=== PATIENT | female | born 1980 | race Caucasian/White ===

== ENCOUNTER → 2018-02-23 08:22 | Outpatient (CLI) | payer SELFPAY ==
--- NOTE | 2018-02-23 08:26 | US_ITS ---
STUDY: FIRST TRIMESTER OBSTETRICAL ULTRASOUND REASON FOR EXAM: Female, 38 years old. dating. LMP: November 29, 2017. TECHNIQUE: Transabdominal PRIOR ULTRASOUND: None. FINDINGS: There is visualization of a single gestational sac in a normal intrauterine position. The mean sac diameter (MSD) measures 6.2 cm x 3.3 cm x 8.1 cm. The gestational sac shape is within normal limits. There is no demonstrated yolk sac. The placenta is non-visualized. There is visualization of a live embryo. The crown-rump length (CRL) measures 6.05 cm, indicating an estimated gestational age (EGA) of 12 weeks, 4 days. There is demonstrated cardiac activity with a heart rate of 150 bpm. The estimated gestation age (EGA) by LMP is 12 weeks, 4 days. The estimated date of delivery (WESLY) by LMP is September 03, 2018. The estimated gestation age (EGA) by US is 12 weeks, 2 days. The estimated date of delivery (WESLY) by US is September 05, 2018. The uterus measures 11.6 cm x 10.3 cm x 8.8 cm. There is no demonstrated uterine fibroid. The cervix is closed. The right ovary is not visualized. The left ovary is not visualized. There is no fluid in the cul de sac. US/Init OB < 14Wks US IMPRESSION: Single live intrauterine gestation with a mean gestational age of 12 weeks and 2 days. Electronically Signed: Hudson Woods MD at 10:10 EDT Tel [phone], Service support ,
== END ==
PROVIDERS: Family Provider Student in an Organized Health Care Education/Training Program; PCP Student in an Organized Health Care Education/Training Program
DX: Z36.9 Encounter for antenatal screening, unspecified (principal)
CPT/HCPCS: 76801

== ENCOUNTER → 2018-04-18 13:55 | Outpatient (CLI) | payer SELFPAY ==
--- NOTE | 2018-04-18 14:01 | US_ITS ---
STUDY: SECOND AND THIRD TRIMESTER OBSTETRICAL ULTRASOUND REASON FOR EXAM: Female, 38 years old. Anatomy scan LMP: TECHNIQUE: Transabdominal PRIOR ULTRASOUND: 7.20.18 FINDINGS: There is a single intrauterine fetus. The fetus is in a cephalic presentation. There is demonstrated cardiac activity with a heart rate of 153 bpm. There is a normal amniotic fluid volume. The placenta is anterior in location and is not low lying. There are Grade 1 placental changes. The cervix measures 3 9 mm in length. The bilateral adnexal regions are normal. BIOMETRY: BPD: 47mm: 20 weeks, 1 days HC: 174mm: 20 weeks, 0 days AC: 149mm: 20 weeks, 1 days FL: 39mm: 20 weeks, 2 days CI: 81 FL/BPD: 70 FL/HC: FL/AC: 22 HC/AC: 1.17 age by current US: 20 weeks, 1 days. WESLY by current US: 1.29.19. Estimated weight: 336 grams, +/- 49 grams, 38 %. age by prior US: 20 weeks, 2 days. WESLY by prior US: 1.28.19. Age by LMP: 20 weeks, 2 days. WESLY by LMP: 1.28.19. ANATOMY: Gender: Male Cranium: Normal lateral ventricles. Normal choroid plexus. Normal cerebellum. Normal cisterna magna. Normal face, nose and lips. Chest: Normal 4-chamber heart. Abdomen/Pelvis: Normal diaphragm. Normal stomach. Normal abdominal wall. Normal cord insertion. Normal 3 vessel cord. Normal kidneys. Normal bladder. Spine: Normal cervical spine. Normal thoracic spine. Normal lumbar spine. Normal sacrum. Extremities: Normal bilateral upper extremities. Normal bilateral lower extremities. US/OB Anatomy Scan IMPRESSION: There is a single live intrauterine with a heart rate of 153 bpm. age by current US: 20 weeks, 1 days. WESLY by current US: 1.29.19. Unremarkable anatomic survey Electronically Signed: Girish Wallis MD at 20:19 EDT , Service support ,
== END ==
PROVIDERS: Family Provider Student in an Organized Health Care Education/Training Program; PCP Student in an Organized Health Care Education/Training Program
DX: Z36.9 Encounter for antenatal screening, unspecified (principal)
CPT/HCPCS: 76805

== ENCOUNTER → 2019-05-07 17:42 | Outpatient (CLI) | payer SELFPAY ==
[2019-04-24 08:32] VITALS: BMI 28.4
--- NOTE | 2019-05-07 17:50 | CT_ITS ---
STUDY: CT ABDOMEN WITH CONTRAST REASON FOR EXAM: Female, 39 years old. Ventral hernia RADIATION DOSAGE (If Supplied By Facility): CTDIvol = ( 10.80 ) mGy, DLP = ( 304.46 ) mGycm TECHNIQUE: Transaxial images were obtained post I.V. administration of Oral and amp;amp; IV Readi-CAT and amp;amp; 100mL Isovue-300 100, and oral contrast. Sagittal and coronal images were reconstructed. Individualized dose optimization techniques were used for this CT. COMPARISON: None. FINDINGS: The visualized lung bases are unremarkable. The visualized portions of the heart are within normal limits. Subcentimeter cysts in the liver. Normal gallbladder and extrahepatic biliary system. Normal spleen. Normal pancreas. Normal bilateral adrenal glands. Normal right kidney. Normal left kidney. Normal visualized stomach. Normal visualized small intestine. Normal visualized colon. Normal abdominal aorta. Normal inferior vena cava. Normal retroperitoneum. Possible 1 cm right adnexal cystic nodule. Small fatty periumbilical hernia. Normal osseous structures. CT/Abdomen WITH IV Contrast IMPRESSION: Small fatty periumbilical hernia. Small hepatic cysts. Small right adnexal cystic nodule. Electronically Signed: Jamie Card DO at 19:51 EDT Tel [phone], Service support ,
== END ==
PROVIDERS: Family Provider Student in an Organized Health Care Education/Training Program; PCP Student in an Organized Health Care Education/Training Program; Referring Provider Surgery; Visit Provider Surgery
DX: K43.9 Ventral hernia without obstruction or gangrene (principal)
CPT/HCPCS: 74160; Q9967

== ENCOUNTER 2019-09-26 09:37 | Day surgery (SDC) | payer SELFPAY ==
[2019-04-24 08:32] VITALS: BMI 28.4
[2019-09-24 13:22] LABS: Hematocrit 34.7 % (37-47); Hemoglobin 11.2 g/dL (12.0-15.0); Mean Corp Hgb Conc 32.3 g/dL (32-36); Mean Corpuscular Hgb 29.2 pg (27.0-32.0); Mean Corpuscular Volume 90.4 fL (81-99); Mean Platelet Vol. 9.9 fl (6.2-12.0); Platelet Count 309 K/mm3 (150-450); RBC Distribution Width CV 13.7 % (11.6-14.6); RBC Distribution Width SD 45.1 fl (35.1-43.9); Red Blood Count 3.84 M/mm3 (4.2-5.4); White Blood Count 10.7 K/mm3 (4.4-11.0)
[2019-09-24 13:33] LABS: Partial Thromboplast Time 24.9 Seconds (24.1-36.2); Prothrombin Time (Protime)PT. 12.9 SECONDS (11.7-14.9)
[2019-09-26] VITALS (8 sets, daily range): BP systolic 91–107; BP diastolic 54–76; PULSE 60–72; RESP 15–18; TEMP 36.6–36.8; O2SAT 100; BMI 22.0
--- NOTE | 2019-09-26 | POC_PTH ---
PATIENT: BIANCA [place]ARRY [place] [facility] [place][id number] AGE/SX: 39/F ROOM: RE09/26/[address]: Dr. Chelita Juarez MD : 1980 BED: DIS: 09/26/2019 SPEC #: [id number] RECD: 09/26/19 16:24 STATUS: SOM JAMILA #: [id number] GÓMEZ: 09/26/19 00:[address]: Chelita Heard DEPT: SURGICAL PATHOLOGY RECD BY: Jose Cruz Sequeira ENTERED: 09/27/19 10:01 SP TYPE: PROD CONC OTHR DR: Dr. Martin Marin, DO Tissues: Product of conception, NOS Procedures: Surgery Specimen Level IV HEADER OPERATION: D & C suction PRE-OP DIAGNOSIS: Incomplete spontaneous TISSUE SUBMITTED: Products of conception MICROSCOPIC DIAGNOSIS Endometrium, curettage: Chorionic villi, decidualized stroma and trophoblastic cells consistent with products of conception. AM:bacilio 09/30/19 MICROSCOPIC DESCRIPTION Slides are reviewed. GROSS DESCRIPTION Received in fixative is one container labeled with the patient's name and designated products of conception. The specimen consists of multiple fragments of pink soft tissue mixed with blood clot that in aggregate measure 4 x 4 x 1 cm. tissue is not identified. The entire specimen is submitted in four cassettes. / SJ:bacilio 09/27/19 TC:5 CPT: 37692
--- NOTE | 2019-09-26 06:03 | HP.PCM_ITS ---
- Problem List (1) Incomplete spontaneous Status: Acute History and Physical Date of Admission: 09/26/19 SURGICAL H&P Date: 09/24/2019 Name: BIANCA SMITH Age: 39 Date of : 1980 HISTORY OF PRESENT ILLNESS: On 09/24/2019, Bianca Smith, a 39 year old female 2 0 1 0 2, presented for: --Scheduled suction dilation and curettage following incomplete SAB of anembryonic gestation. [facility] [place] ALLERGIES: NKA, unknown antibiotic, Ill and No Known Drug Allergies MEDICATIONS HISTORY: Patient is also takin. [employer] Thyroid 60 mg tablet, As Directed REVIEW OF SYSTEMS: GENERAL - Denies fever, or chills SKIN - Denies skin changes EYES - wears eye glasses EARS - Denies difficulty hearing NOSE - Denies nasal congestion or bleeding MOUTH - Denies sore throat or difficulty swallowing NECK - Denies pain or swelling RESPIRATORY - Denies shortness of breath or wheezing CARDIOVASCULAR - Denies palpitations or chest pain GASTROINTESTINAL - Denies nausea, vomiting, diarrhea, constipation GENITOURINARY - light spotting MUSCULOSKELETAL - Denies joint or muscle pain NEUROLOGICAL - Denies localized numbness or weakness PSYCHIATRIC - tearful ENDOCRINE - Denies heat or cold intolerance, weight loss or gain HEMATO-IMMUNOLOGIC - Denies excesive bleeding with cuts PAST HISTORY: Breast/Ovarian/Colon Cancers - Ovarian Cancer and maternal great grandmother Infections - Chicken pox Illnesses - Depression, Accidents - Dog bite, age 4 History of Abnormal PAPS - Denies Hospitalizations - see surgery last pap February 2015; SURGICAL HISTORY: 1. Ear tubes and adnoidectomy, 3rd grade 2. [place] Teeth Removal, 1998 3. upper GI, Mar 2013 MENSTRUAL HISTORY: LMP Known?- SAB, LMP - 09/11/18, Age Onset Menarche - 12 PAST PREGNANCIES: Total Pregnancies - 3; Full Term Pregnancies - 2; Premature - 0; Abortions, Induced - 0; Abortions, Spontaneous - 1; Ectopics - 0; Multiple Births - 0; Living Children - 2 FAMILY HISTORY: Mother - Unknown Disease; Aunt - Unknown Disease; MaternalGrandparent - FH: Congestive heart failure; MaternalGrandparent - Type 2 Diabetes; MaternalGreatgrandparent - Ovarian Carcinoma; SOCIAL HISTORY: Alcohol Use - denies drinking Smoking - Never Diet - balanced Diet Lifestyle - Exercise - minimal Seat Belt Use - always Employer - stays at home Illicit Drug Use - denies use of street drugs Sexual Activity - Residence - rents Place of - [place], [place] Spouse-Sig Other Name - David Spouse-Sig Other Occupation - [employer] Spouse-Sig Other Phone No - [phone] (work) Children Name(s) - Jayce Romero Control - recent SAB PHYSICAL EXAMINATION BP- 100/62 Sitting, Right arm, regular cuff Weight- 133.00 lbs Height- 64.25 inch BMI:22.70 CONSTITUTIONAL - NAD, well nourished, and well developed SKIN - No rash, lesions, or ulcers HEENT - normocephalic, atraumatic, sclerae anicteric LUNGS - normal respiratory rate and rhythm ABDOMEN - Without hepatosplenomegaly, distention, masses, rebound, or guarding; normal bowel sounds; approx 2.5cm umbilical hernia and diastasis also present NEUROLOGICAL - normal gait, normal balance, normal motor PSYCHIATRIC - A and O to time, place, person, mood and affect DETAILED PELVIC EXAM External Genital Vagina - non-tender without lesions Urethra/Urethral Meatus - non-tender Bladder - non-tender Vagina - vaginal adame are pink and moist without loss of rugae and no evidence of atropy Cervix - without cervical motion tenderness and has normal size and features wi thout evident lesions, cervix closed Uterus - enlarged uterus 8 wks, wt 125-150 g Adnexa - clear without massess or tenderness ASSESSMENT: 1. Incomplete Spontaneous Without Complication PLAN BY DIAGNOSIS: 1. Incomplete Spontaneous Without Complication US with thickened endometrial stipe, c/w retained POCs Findings reviewed with pt, recommend suction dilation and curettage Procedural r/b/i/a reviewed. Consents signed NPO prior to procedure Support offered
[2019-09-26] MEDS: Doxycycline 100 MG CAPSULE PO (10:14)
[2019-09-26] MEDS: Lactated Ringers 1,000 ML 100 ML IV ×2 (10:19→13:05)
[2019-09-26 11:16] LABS: Bedside Glucose 64 mg/dL (70-110)
--- NOTE | 2019-09-26 12:30 | PCM.OPRPT ---
Problem List (1) Incomplete spontaneous Status: Acute Report of Operation Date of Procedure: 09/26/19 Pre-Operative Diagnosis: Incomplete spontaneous Post-Operative Diagnosis: incomplete spontaneous Surgery/Procedure Performed:: suction dilation and curettage Type of Anesthesia:: Local MAC Anesthesiologist: Marco A Benito Specimen's removed: products of conception Estimated Blood Loss (mL): 10 Fluids Replaced: 700ml Description of Procedure: Patient was brought to the operating room and sign in performed. She was placed in the dorsal supine position and induced under MAC anesthesia. The perineum was prepped and draped in sterile fashion. Straight catheterization of the bladder was performed. A bivalved speculum was placed vaginally and cervix grasped at anterior lip with single tooth tenaculum. A paracervical block was administered with a total of 15cc - 1% lidocaine. The cervix was dilated and suction curettage performed with 9mm curved curette. This was followed by sharp curettage and again suction curettage was performed until there was no further tissue retrieval. The procedure was complete. The tenaculum and speculum were removed. The tenaculum site was hemostatic. The patient was repositioned into dorsal supine, awakened and transferred to the recovery room without complication. Sponge counts were correct x2. The patient tolerated the procedure well. - Admit VTE Documentation VTE Present on Admission: No VTE Mechan Device Prophylaxis: SCD's VTE Pharm Prophylaxis ordered?: No
--- NOTE | 2019-09-26 12:36 | DCINST_ITS ---
Discharge Diet: No Restrictions Discharge Activity: Return to Normal Activity, May Shower, - - no tub bath x 2 weeks May resume sexual activity in: - - 2-4 weeks Call your doctor if you observe: Fever of 101 or Higher, Inability to urinate, Inability to have a bowel movement, Using more than one pad per hour, Shortness of breath, Chest pain, Calf discomfort Allergies/Adverse Reactions: Allergies No Known Allergies Allergy (Verified 09/26/19 09:50) Medications to take at Discharge Nature Throid 32.5 mg PO DAILY 01/02/16 Vits [Prenatabs FA] 1 tab PO DAILY 01/02/16 Ferrous Sulfate [Iron] 325 mg PO BID 09/25/19 Ibuprofen 600 mg PO TID PRN #30 tab 09/26/19 Oxycodone [Oxyir] 5 mg PO Q6H PRN PRN 7 Days #5 tab 09/26/19 The following prescriptions were given: Ibuprofen 600 mg PO TID PRN #30 tab PRN Reason: Pain Or Fever Transmission Status: Pending to [id number] Oxycodone [Oxyir] 5 mg PO Q6H PRN PRN 7 Days #5 tab PRN Reason: severe pain Prescription Printed Primary Care Physician: Martin Marin DO [Primary Care Provider] - Test Results: Test results from this visit will be discussed in further detail at your follow- up appointment, if applicable. Please Follow Up With: Chelita Pedraza MD When: 2-4 weeks
== END 2019-09-26 14:05 | disposition home or self-care (01) ==
LOC: SDC 09:42 → AC 09:42
PROVIDERS: PCP Student in an Organized Health Care Education/Training Program; Referring Provider Obstetrics & Gynecology; Visit Provider Obstetrics & Gynecology
PROC: (CPT 59812; principal; 2019-09-26 11:15)
DX: O03.4 Incomplete spontaneous abortion without complication (principal); E07.9 Disorder of thyroid, unspecified; F32.9 Major depressive disorder, single episode, unspecified; F41.9 Anxiety disorder, unspecified; Z79.899 Other long term (current) drug therapy
CPT/HCPCS: 01965; 59812; 36415; 82962; 85027; 85610; 85730; 86850; 86900; 86901; 88305; J7120; J2405

== ENCOUNTER 2020-02-19 18:22 | Emergency (ER) | payer OTHER, SELFPAY ==
[2019-09-26 10:04] VITALS: BMI 22.0
[2020-02-19 18:23] VITALS: BP 128/66; PULSE 80; RESP 16; TEMP 36.9; BMI 22.0
--- NOTE | 2020-02-19 18:55 | CT_ITS ---
STUDY: CT BRAIN WITHOUT CONTRAST REASON FOR EXAM: Female, 40 years old. BILAT ARM NUMBNESS,HEADACHE,VISION CHANGES IN RT EYE,PT 8 WEEKS AND WAS SHIELDED -- HX:MIGRAINES RADIATION DOSAGE (If Supplied By Facility): CTDIvol = ( 44.99 ) mGy, DLP = ( 812.98 ) mGycm TECHNIQUE: Transaxial CT imaging of the brain was performed without administration of intravenous contrast material. Individualized dose optimization techniques were used for this CT. COMPARISON: No relevant priors. FINDINGS: Normal soft tissue structures. Normal calvarium. Normal size ventricles and extra-axial spaces for the patient''s age. Normal white matter tracts of the cerebral hemispheres. Normal basal ganglia and thalami. Normal brainstem. Normal cerebellum. There is no intracranial hemorrhage. There are no findings of an acute ischemic infarction. Normal visualized paranasal sinuses. CT/Brain/Head without Contrast IMPRESSION: Normal unenhanced CT scan of the brain. Electronically Signed: Grady Elder MD at 20:00 EDT , Service support ,
--- NOTE | 2020-02-19 18:56 | ED.DCSUM_ITS ---
- ER Visit Summary Date of Service: 02/19/20 Chief Complaint: Headache History of Present Illness: The patient is a 40 F who presents with a headache that began today. Patient states she started having some numbness and tingling in her right arm. Patient states this spread up to her right side of her face. Patient states that she also noted some tingling later in her left arm. Patient states she had some floaters in her vision. Patient states she then developed a headache. Patient states her headache is over the left side of her head. Patient states she has a history of migraines. Patient states this is different and that she has never had any paresthesias in her arms or face before. Patient denies any neck pain. Patient admits to nausea but denies any vomiting. Patient is approximately 8 weeks . Physical Examination: Vital signs are stable. Patient is afebrile. Patient is in no acute distress. Pulls are equal, round, and reactive to light bilaterally. Extraocular muscles are intact. Funduscopic examination was benign. Oral mucosa is pink and moist. Neck is supple. Trachea is midline. There is no JVD noted. Heart was regular rate and rhythm. Lungs are clear and equal bilaterally. Abdomen is soft. Bowel sounds are normal. There is no tenderness. There is no rebound or guarding noted. Skin is warm dry. Cranial nerves II through XII are intact. There are no focal motor or sensory deficits noted. Extremities are intact. There is no calf tenderness or edema. Test Results: CT scan of the brain was obtained. There is no acute intracranial abnormality. CBC, basic metabolic profile, and urinalysis were obtained and were within normal limits. Emergency Department Course and Treatment: Patient was given IV fluids, Reglan, and Benadryl. Patient was feeling better on reevaluation. Patient was instructed to drink plenty of fluids. Patient was instructed to rest in a dark quiet room. Patient was instructed to follow-up with her primary care physician in 5 to 7 days. Patient understood and was agreeable with the plan. All questions were answered. Disposition: Discharge home Impression: Headache This note was generated with [employer] software. It may contain incorrect words, spelling, and punctuation that were not noted in review of the chart prior to signing ED Disposition - Plan for ED Patient: Disposition: Home or Assisted Living Diagnosis: Headache Instructions: ED Headache Unspecified Referrals: Martin Marin DO [Primary Care Provider] - 5-7 Days
[2020-02-19 19:08] LABS: Bacteria 0 SEEN /hpf (None Seen); Mucous, Urine 0 SEEN /hpf (<or=2+); Red Blood Cells-Urine 0 SEEN /hpf (0-5); Squamous Epithelial Cells - UA 0 SEEN /hpf (5-10); White Blood Cells 0 SEEN /hpf (0-5)
[2020-02-19 19:10] LABS: Color, Urine Straw (Yellow); Glucose, Dipstick Normal (Normal); Ketone-Dipstick Negative (Negative); Leukocyte Esterase-Dipstick Negative /ul (Negative); Nitrite-Dipstick Negative (Negative); Occult Blood-Urine Negative /ul (Negative); Protein-Dipstick Negative (Negative); Specific Gravity, Urine 1.005 (1.002-1.030); Urine Bilirubin Dipstick Negative (Negative); Urine Clarity Clear (Clear); Urine Urobilinogen Normal (Normal)
[2020-02-19] MEDS: DiphenhydrAMINE 50 MG/ML Syringe 25 MG IV (19:12)
[2020-02-19] MEDS: 0.9% Normal Saline 1,000 ML 999 ML IV (19:12)
[2020-02-19] MEDS: Metoclopramide 10 MG/2 ML Vial IV (19:13)
[2020-02-19 19:21] VITALS: RESP 16; O2SAT 100
[2020-02-19 19:47] LABS: Absolute Lymphocyte Count 2.67 X10^3/uL (0.83-4.51); Absolute Neutrophil Count 7.2 X10^3/uL (2.0-7.7); Basophil# 0.02 X10^3/uL; Basophil% 0.2 % (0-1); Eosinophil# 0.13 X10^3/uL; Eosinophils% 1.2 % (0-5); Hematocrit 36.1 % (37-47); Hemoglobin 12.2 g/dL (12.0-15.0); Lymphocyte # 2.67 X10^3/ul (4.0); Lymphocyte % 24.5 % (19-41); Mean Corp Hgb Conc 33.8 g/dL (32-36); Mean Corpuscular Hgb 30.2 pg (27.0-32.0); Mean Corpuscular Volume 89.4 fL (81-99); Mean Platelet Vol. 9.9 fl (6.2-12.0); Monocyte# 0.87 X10^3/uL; NRBC Flagged by Analyzer 0 % (0-5); Neutrophil # 7.15 X10^3/uL (2.7-7.7); Neutrophil % 65.7 % (47-70); Platelet Count 222 K/mm3 (150-450); RBC Distribution Width CV 13.5 % (11.6-14.6); RBC Distribution Width SD 43.6 fl (35.1-43.9); Red Blood Count 4.04 M/mm3 (4.2-5.4); White Blood Count 10.9 K/mm3 (4.4-11.0)
[2020-02-19 20:23] LABS: Anion Gap 7 (5-15); BUN 11 mg/dL (7-18); BUN/Creat Ratio 19.1 RATIO (10-20); Calcium,Total 9.1 mg/dL (8.5-10.1); Chloride 104 mmol/L (98-107); Creatinine, Serum 0.58 mg/dL (0.55-1.02); EST Glomerular Filtration Rate 124 mL/min (>60); Est Glom Filt Rate - Afr Amer 150 mL/min (>60); Estimated Creatinine Clearance 125.38 ml/min; Glucose 89 mg/dL (74-106); Potassium 3.4 mmol/L (3.5-5.1); Sodium Level 137 mmol/L (136-145)
[2020-02-19 20:47] VITALS: BP 124/62; PULSE 72; RESP 16; O2SAT 98
== END 2020-02-19 20:56 | disposition home or self-care (01) ==
PROVIDERS: Emergency Provider Emergency Medicine; PCP Student in an Organized Health Care Education/Training Program
DX: O26.891 Other specified pregnancy related conditions, first trimester (principal); R51 Headache; R20.2 Paresthesia of skin; R20.0 Anesthesia of skin; O09.511 Supervision of elderly primigravida, first trimester; O99.281 Endocrine, nutritional and metabolic diseases complicating pregnancy, first trimester; E03.9 Hypothyroidism, unspecified; Z3A.08 8 weeks gestation of pregnancy
CPT/HCPCS: 70450; 80048; 81001; 85025; 94760; 96361; 96374; 96375; 99283; J7030; A4216

== ENCOUNTER → 2020-03-10 | Outpatient (CLI) | payer SELFPAY ==
[2020-02-19 18:23] VITALS: BMI 22.0
== END | disposition home or self-care (01) ==
PROVIDERS: PCP Student in an Organized Health Care Education/Training Program; Visit Provider Obstetrics & Gynecology
DX: Z12.4 Encounter for screening for malignant neoplasm of cervix (principal); Z11.3 Encounter for screening for infections with a predominantly sexual mode of transmission

== ENCOUNTER → 2020-03-13 15:16 | Outpatient (CLI) | payer SELFPAY ==
[2020-02-19 18:23] VITALS: BMI 22.0
[2020-03-13 16:03] LABS: Absolute Lymphocyte Count 2.28 X10^3/uL (0.83-4.51); Absolute Neutrophil Count 7.8 X10^3/uL (2.0-7.7); Basophil# 0.02 X10^3/uL; Basophil% 0.2 % (0-1); Eosinophil# 0.11 X10^3/uL; Hematocrit 34.5 % (37-47); Hemoglobin 11.6 g/dL (12.0-15.0); Lymphocyte # 2.28 X10^3/ul (4.0); Lymphocyte % 20.9 % (19-41); Mean Corp Hgb Conc 33.6 g/dL (32-36); Mean Corpuscular Hgb 30.1 pg (27.0-32.0); Mean Corpuscular Volume 89.6 fL (81-99); Mean Platelet Vol. 10.3 fl (6.2-12.0); Monocyte# 0.66 X10^3/uL; Monocyte% 6.1 % (0-10); NRBC Flagged by Analyzer 0 % (0-5); Neutrophil # 7.79 X10^3/uL (2.7-7.7); Neutrophil % 71.5 % (47-70); Platelet Count 219 K/mm3 (150-450); RBC Distribution Width CV 13.3 % (11.6-14.6); RBC Distribution Width SD 43.6 fl (35.1-43.9); Red Blood Count 3.85 M/mm3 (4.2-5.4); White Blood Count 10.9 K/mm3 (4.4-11.0)
[2020-03-13 16:46] LABS: Hemoglobin A1c 4.8 % (3.8-5.6); Thyroid Stim Hormone (TSH) 0.54 uIU/mL (0.358-3.74)
[2020-03-13 17:19] LABS: Color, Urine Yellow (Yellow); Glucose, Dipstick Normal (Normal); Ketone-Dipstick Negative (Negative); Leukocyte Esterase-Dipstick Negative /ul (Negative); Nitrite-Dipstick Negative (Negative); Occult Blood-Urine Negative /ul (Negative); Protein-Dipstick Negative (Negative); Urine Bilirubin Dipstick Negative (Negative); Urine Clarity Clear (Clear); Urine Urobilinogen Normal (Normal)
[2020-03-13 17:30] LABS: Amphetamine Urine VISTA NEGATIVE (<1000 ng/mL); Barbiturate Urine VISTA NEGATIVE (< 200 ng/mL); Benzodiazepine Urine VISTA NEGATIVE (< 200 ng/mL); Cocaine Urine VISTA NEGATIVE (< 300 ng/mL); Ecstacy Urine VISTA NEGATIVE (< 500 ng/mL); Methadone Urine VISTA NEGATIVE (< 300 ng/mL); PCP Urine VISTA NEGATIVE (< 25 ng/mL); THC Urine VISTA NEGATIVE (< 50 ng/mL); Vista UDS pH Range 6
[2020-03-16 11:08] LABS: HIV - WCH Non-Reactive (Nonreactive); Hepatitis B Surface Antigen Non-Reactive (Nonreactive); Hepatitis C Antibody Non-Reactive (Nonreactive); Rubella IgG 93.8 IU/mL; Vitamin D,25 Hydroxy 22.4 ng/mL
[2020-03-19 11:06] LABS: Prenatal RPR NONREACTIVE (NONREACTIVE)
== END ==
PROVIDERS: PCP Student in an Organized Health Care Education/Training Program; Visit Provider Obstetrics & Gynecology
DX: O09.519 Supervision of elderly primigravida, unspecified trimester (principal); Z3A.00 Weeks of gestation of pregnancy not specified; E55.9 Vitamin D deficiency, unspecified
CPT/HCPCS: 36415; 80307; 81002; 82306; 83036; 84443; 85025; 86703; 86762; 86803; 87340

== ENCOUNTER → 2020-07-08 11:43 | Outpatient (CLI) | payer SELFPAY ==
[2020-07-08 13:37] LABS: Hematocrit 38.4 % (37-47); Hemoglobin 12.3 g/dL (12.0-15.0); Mean Corpuscular Hgb 29.7 pg (27.0-32.0); Mean Corpuscular Volume 92.8 fL (81-99); Mean Platelet Vol. 10.6 fl (6.2-12.0); Platelet Count 233 K/mm3 (150-450); RBC Distribution Width CV 12.7 % (11.6-14.6); RBC Distribution Width SD 43.5 fl (35.1-43.9); Red Blood Count 4.14 M/mm3 (4.2-5.4); White Blood Count 9.1 K/mm3 (4.4-11.0)
[2020-07-08 14:01] LABS: Free T3 3.2 pg/mL (2.18-3.98); T4 Free Direct 0.91 ng/dL (0.76-1.46); Thyroid Stim Hormone (TSH) 0.88 uIU/mL (0.358-3.74)
== END ==
PROVIDERS: PCP Student in an Organized Health Care Education/Training Program; Visit Provider Obstetrics & Gynecology
DX: O99.282 Endocrine, nutritional and metabolic diseases complicating pregnancy, second trimester (principal); E03.9 Hypothyroidism, unspecified; Z3A.00 Weeks of gestation of pregnancy not specified
CPT/HCPCS: 36415; 82306; 84439; 84443; 84481; 85027

== ENCOUNTER → 2020-09-01 09:56 | Outpatient (CLI) | payer SELFPAY ==
--- NOTE | 2020-09-01 10:08 | VDLE_ITS ---
Reason For Study: Pain RIGHT GSV is normal. CFV is compressible, spontaneous, phasic, competent and demonstrates normal augmentation. FV is compressible, spontaneous, phasic, competent and demonstrates normal augmentation. POP V is compressible, spontaneous, phasic, competent and demonstrates normal augmentation. T/P Trunk is compressible. PTV is compressible. RT PerV is compressible. Procedure This is a venous duplex using B-mode, color flow and spectral Doppler. Exam performed in department. A preliminary report was called and/or faxed to [facility]. Interpretation Summary Deep veins of the right lower extremity are patent and compressible segmentally. There is no evidence of right lower extremity deep vein thrombosis. Valvular competence appears intact within the proximal deep venous system on the right . The right great saphenous vein appears patent and compressible segmentally. Ordering Physician: Chloe Bob Performed By: Rashida Naylor RVT
== END ==
PROVIDERS: PCP Student in an Organized Health Care Education/Training Program; Visit Provider Student in an Organized Health Care Education/Training Program
DX: O22.03 Varicose veins of lower extremity in pregnancy, third trimester (principal); M79.605 Pain in left leg; Z3A.35 35 weeks gestation of pregnancy
CPT/HCPCS: 93971

== ENCOUNTER → 2020-09-02 | Outpatient (CLI) | payer SELFPAY | END | disposition home or self-care (01) | LOC: LABSPEC 13:41 | PROVIDERS: PCP Student in an Organized Health Care Education/Training Program; Visit Provider Obstetrics & Gynecology | DX: Z36.85 Encounter for antenatal screening for Streptococcus B (principal) | CPT/HCPCS: 87081 ==

== ENCOUNTER 2020-09-14 23:00 | Outpatient (CLI) | payer SELFPAY ==
[2020-09-14 23:30] VITALS: BP 105/67; PULSE 83; PULSE 87; TEMP 36.6; O2SAT 98
[2020-09-14 23:40] VITALS: BMI 29.2
[2020-09-15 00:11] LABS: ROM Internal Control Test YES-OK TO RESULT pt. (Internal QC); ROM Patient Test Negative (Negative)
--- NOTE | 2020-09-17 08:41 | PCM.PN.BLA ---
Progress Note Pt37/4w presenting to [facility]. Not ruptured, ROM negative. status reassuring, discharged home with follow up this week.
== END 2020-09-15 01:05 | disposition home or self-care (01) ==
LOC: WPOUT 23:05 → WP 23:06
PROVIDERS: PCP Student in an Organized Health Care Education/Training Program; Visit Provider Student in an Organized Health Care Education/Training Program
DX: Z34.90 Encounter for supervision of normal pregnancy, unspecified, unspecified trimester (principal)
CPT/HCPCS: 59025; 59050; 84112; 99218; G0378

== ENCOUNTER 2020-09-23 09:59 | Inpatient (IN) | payer SELFPAY ==
[2020-09-23] VITALS (12 sets, daily range): BP systolic 96–122; BP diastolic 43–78; PULSE 62–90; RESP 16–18; TEMP 36–36.6; O2SAT 97–100; BMI 29.4
--- NOTE | 2020-09-23 09:30 | PCM.HP.BLA ---
History and Physical Date of Admission: 09/23/20 ACOG ANTEPARTUM RECORD - HISTORY AND PHYSICAL (09/23/2020) Name: BIANCA PARRY History of this : This is a 40 year old [id number] presents at 39 wks + 0 days gestation for primary for breech presentation. OB Physician: Chelita Juarez MD 's Physician: DR. JUAN SIU ...................................................................... : 1980 Age: 40 Address: [address] [place] [address] Phone: [phone]) [phone]) [phone] Insurance Carrier: Emergency Contact: DAVID PARRY [phone] ...................................................................... Final WESLY: 09/30/20 By Ultrasound: 10 weeks 6 days PARITY: (G-Total Pregnancies P-Fullterm,Premature,Induced AB,Spont AB, Ectopics, Multiple,Living) WESLY CONFIRMATION: By LMP: 12/25/19 By First Ultrasound Exam: 09/29/20 Final WESLY: 09/30/20 OB PROBLEM LIST: AMA - IOL at 39 wga plan: delayed cord clamping to end pulsation, Saline lock, intermittent auscultation , no baby meds Call [facility] for admission, delivery - prior to 09/24 GBS neg GDMA - declines medication Hx of shoulder dystocia Hypothyrodism Low Vit D Migraines msAFP and CF testing declined Polyhydramnios - Advised continuous monitoring Unmedicated delivery planned ALLERGIES: NKA No Known Drug Allergies unknown antibiotic Ill MEDICATIONS: aspirin 81 mg tablet,delayed release One pill by mouth once a day glyburide 1.25 mg tablet 1 tab po qam with breakfast Nature-Throid 32.5 mg tablet One pill by mouth once a day Ovasitol 2,000 mg-50 mg oral powder packet As Directed Vitamin tablet one daily progesterone micronized 100 mg capsule As Directed Vitamin C 500 mg capsule,extended release One pill by mouth once a day Vitamin D3 125 mcg (5,000 unit) tablet One pill by mouth once a day Vitamin D3 50 mcg (2,000 unit) capsule One pill by mouth once a day zinc gluconate 50 mg tablet One pill by mouth once a day SOCIAL HISTORY: Smoking - Never Alcohol Use - None Diet - moderate, balanced diet, caffeine < 2 drinks per day and water tries for 1 liter. Lifestyle - Exercise - Busy w family and toddler. Occ walks. Employer - stays at home Job Description - Illicit Drug Use - denies use of street drugs Sexual Activity - Residence - ren Place of - [place], [place] Spouse-Sig Other Name - David Spouse-Sig Other Occupation - [employer] Spouse-Sig Other Phone No - [phone] Children Name(s) - Jayce Romero PRIOR DELIVERY HISTORY DEL DATE GEST LAB WT LB WT OZ TYPE ANES LABOR TX 05 Sep 25 41 3 [phone] 0 Vag None No December 20 40 7 7 10 Vag Local No ANTEPARTUM FLOW CHART VISIT GE RTC FU F F SD U U DATE WK MD WKS HT PN HR M SS BP ED WT SD GL D EF ST __ ____ ___ __ __ ___ __ __ __ ___ __ __ __ ___ __ 12 Sep 38 SHM 1 40 B + + 120/80 1+ 175 tr - 05 Sep 37 SHM 4 38 T + + 126/86 0 174 tr - Aug SHM 1 38 V + + 116/84 0 169 tr ne 0 0 -5 Aug SHM 2 36 V + + 100/72 0 167 tr - Aug JMW 1 34 V + + 110/68 0 167 ne ne Aug SHM 110/70 160 - - Aug 06 JM 2 32 V on + 110/72 0 165 tr - Aug 04 CM 2 29 + + 116/72 0 161 - - 02 Aug 03 SHM 2 29 V + + 110/70 0 163 ne ne Jun 30 SHM 4 24 V + + 110/60 sl 159 - - May 26 SHM 4 20 on + 102/74 sl 153 tr - Apr 22 SHM 4 16 + O 102/64 0 147 tr - ANTEPARTUM NOTE(S): Sep 18 2020: see note Sep 11 2020: decreased FM, joe [place], positional concerns Sep 02 2020: Aug 25 2020: see note Aug 19 2020: US today, good BS control, mild poly Aug 12 2020: Aug 04 2020: see note Jul 21 2020: Jul 08 2020: blood work today, declined GCT Jun 12 2020: see note May 15 2020: feeling well. Compression stockings help vericose veins. AM Apr 15 2020: see note COMPREHENSIVE ANTEPARTUM NOTE(S): Sep 18 2020: Bianca is here for visit. She feels she is doing better and has come to terms with possible need for C/S. Baby is in Breech position today. She is concerned about incision and can discuss this further with Dr REED. She has areas on lower abdomen that feel ridged and asking about those. Has more edema in feet and ankles by the end of the day. Advised that this is pretty normal. She may notice increased edema after delivery also. Asking about recovery after C/S. Advised this will be a little more than a vaginal delivery and should plan on taking it easy for the first couple weeks. T [facility] is scheduled for P C/S on Saturday 09/23 @ noon. Paperwork completed and faxed. Scheduled with surgery and OB. At this time declined Covid testing. LMT Sep 18 2020: DIONICIO 35.6cm, BPP 8/8, fetus BREECH today. Findings reviewed - following discussion, pt declines ECV and desires to proceed with scheduled C/S at 39wga. Discussed C/S r/b/i/a. Discussed preoperative prep, spinal, anticipated hospitalization and recovery course. Blood sugars at target with single elevated postprandial to 145. No defer medical management. Will scan prior to C/S and if cephalic plan for IOL given AMA. Pt and given opportunity to ask questions and questions answered to their satisfaction. Consents signed and reviewed. Abdominal edema presen, pt reassured. Sep 14 2020: Entry for 09/11/20: US today with increasing DIONICIO, 36.6 cm and MVP-11.4 cm. BPP 8/8. Fetus transverse. Reviewed with patient findings. Home FS log reviewed - taking blood sugars 1-3x daily with few elevations, however, again relayed that I suspect some additional hyperglycemia contributing to polyhydramnios. Pt indicated she did not start the Glyburide as previously discussed. I encouraged her to reconsider. We reviewed that lie likely unstable due to polyhydramnios and discussed observation to 39w planned IOL vs. ECV vs. scheduled section. Advised that given significant polyhydramnios, as well as planned IOL will need continuous monitoring in labor. I do not recommend IOL if transverse lie. Previously discussed home castor oil shake and I advised her to NOT take this given lie. Discussed ECV benefits and risks including discomfort, labor, ROM, cord prolapse requiring emergent delivery, transiet heart changes, heart rate changes requiring emergency delivery, placental abruption also requiring emergency delivery, ECV failure. Also discussed scheduled section at 39+ wga with review of related risks and recovery. Pt tearful, notes she is overwhelmed with recent developments. Encouraged her to discuss her preferences further with and will reassess next week with ABBE GREENBERG. Sep 11 2020: Bianca is here for a PNV. Good FM. No edema present. Reports decreased feeling of FM. States baby is moving fine now but she gets concerned at home. [place] occasionally, denies ctx's. Concerns regarding baby's new position. MK Sep 07 2020: H taken to OB Sep 04 2020: Entry for 09/02/20: BPP 03/14, EFW 2680g today. Discussed preferences. Desires low intervention delivery, pt is comfortable with IOL at 39-40wga given age and prior hx shoulder dystocia. Ok for intermittent auscultation if spontaneous labor. Need to reinforce however that continuous monitoring adviseable if IOL. Pt indicates she does not desire COVID19 testing, had difficulty articulating why initially, but in further discussion is concerned about discomfort and unnecessary testing. Pt will consider testing however if she has symptoms. Reassured her that our policy is not to separate mothers and babies if mom is COVID19 policy and goal to encourage early and sustained . Prefers oral Vitamin K over injection. Declines HBV vaccine, reviewed indications and main risks of acquisition, pt reports understanding. Will scan preferences to chart. Few elevated 1h post breakfast FS. <20% abnormal overall, however, not checking religiously. Recommend trial Glyburide 1.25mg for occult hyperglycemia should it be contributing to persistent polyhydramnios. Pt to continue checking blood sugars. Sep 02 2020: Bianca is here for PNV. Wearing maternity sling. 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 Also brought her recent blood sugars. LARC form signed and declined. States that FM has slowed but still present. No edema noted. Urine tr and neg. Will have GBS today. LSS Aug 25 2020: Bianca is here for visit. She relates she is uncomfortable and ready for baby but no real complaints. Good FM, no edema. Not really doing anything but fasting blood sugars, copy for BRIANNA review. Reviewed FM, SROM, and labor. Asking if the Polyhydramnios increases her risk to rupture prior to labor and advised I do not think that is the case. Will discuss all further with Dr REED. LMT Aug 25 2020: DIONICIO 33cm, MVP8cm. Findings reviewed with pt - fasting glucose levels wnl, however, limited adherence to postmeal testing. Pt reports forgetfulness while caring for household and small children. Discussed my concern for uncaptured hyperglycemia contributing to polyhydramnios - risks of polyhydramnios including cord prolapse, contractions reviewed - as well as risk for hypoglycemia should occult hyperglycemia occur. Encouraged greater adherence, pt in agreement and reports understanding. Prior delivery hx reviewed and c/w shoulder dystocia, further increased risk with GDM and hyperglycemia. Discussed risk for recurrence approx 6-10% and offered scheduled section to avoid recurrence, however, pt declines at this time. Reviewed sequeale including clavicular or humoral fracture, HIE, CP, . Plan for growth, DIONICIO, BPP at next visit - f/u HC/AC. 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 Aug 19 2020: Bianca is here with SO following US for PNV. BS record copied. Having c/o low abd and preineal pressure. No LOF. Having BH. States she is having good FM. No edema noted currently but states she does have some swelling in feet occ by end of day. Urine dipped neg and neg. LSS Aug 04 2020: Bianca is here for visit. She reports that she has noticed almost daily RLQ pain. The pain is even worse at night. She is concerned about the baby being inside her wrong? Advised baby position at this point can still be variable. She did not have many ctx's or discomfort with her other 2 pregnancies. Concerned about the contractions she had the other night and wanted to make sure that the nurse she spoke with noted this in chart. Advised it is documented and can be seen by all physician's. Discussed that third may be more uncomfortable. She had 2 prior full-term deliveries that is helpful information about her that she may be less likely to have a delivery. Again should call if ctx's are regular and progressive after increased fluids, rest, change of position, empty bladder, and trial of Tylenol. More ctx's will be noted with more pregnancies and this is not as much the problem as the progression of these. If they are irregular and not progressive may observe. Needs evaluation if any other sx are noted with ctx's like leaking fluid, bloody show. FM reviewed. Copy of blood sugars for review. LMT Aug 04 2020: 31wk, GDMA1 Fasting 80's 1hr PP 110. Growth u/s today AGA. Polyhydramnios noted DVP 8.4cm. Suggested BPP qwk, pt undecided if she will do this. For delivery at 39wks unless polyhydramnios severe. JM Aug 01 2020: Call Msg from 3:[address] Duncan Juarez. Bianca calling @ 31 wks 3 days b/c her kosher dietary service supervisor advised her to call. Bianca reports having ctx's, low back pain and pain above abdomen, below her ribs. Did not time them. Everything resolved in an hour. She has had no pain today, but has had a few [place], which she states is normal for her, but not more than 6/hr. Reporting good FM, no leaking fluid, no spotting. She was busy playing w/her kids and picking up after opening gifts yesterday for [employer] and had her mother over for dinner. She can not remember what she might have had to drink yesterday. d Moving forward, if ctx's would occur again like last night, drink 2 large glasses of water, take Tylenol, get off her feet and see if quiets down, if not and / OR if having > 6 / hr would need to be seen. Reassurring all stopped within an hour last night -- maybe added activities w/Karol, maybe was not drinking enough fluids ? Watch for now and to call back if further concerns. Next appt on w/Growth US (GDM) She is asking if her kosher dietary service supervisor will be allowed in the hosp d/t COVID? Advised I can not answer that at this time. Will defer to OB policy at the time. Jul 21 2020: Bianca brings her sugar records-- scanned to her chart. Reporting good FM. Planning to meet the other Dr's here. kbm Jul 21 2020: 29/6w visit. GDMA1: patient had been testing glucose at home, changed diet senior care through week. Based on initial, dx of GDMA1 made today. Declines diabetic education at this time, will do if glucose worsens. Discussed delivery 39-40/w. Growth US next visit. Continue glucose monitoring. Discussed risk of LGA, shoulder dystocia. Hx of shoulder dystocia. F/u 2w. CM Jul 09 2020: Entry for 07/08/20: Discussed meeting other docs in office. Has preference for female doing her vaginal exams if needed, but comfortable with male for delivery. Home blood sugars reviewed - 2 elevated postprandials however did not recall that fastings recommended, thus not followed. She will do additional week of fasting and 1h postprandial blood sugars and call to triage nurse to review. Discussed exercises for optimal positioning, control. Considering HUDSON/condom bridge to vasectomy. Pt with hx umbilical hernia - also discussed dual hernia repair with bilateral salpingectomy at 6-12 weeks . TFTs and Vitamin D level today. Jul 08 2020: Bianca is here for PNV. Has refused GCT but monitoring BS at home. Brought results with her today. Agreeable to have blood drawn. States she is feeling good with no N/V. Good FM. No edema noted. Urine dipped neg and neg. No concerns. LSS Jun 12 2020: Bianca is being seen for PNV. Pt is 24 weeks and 2 days. She declines glucose testing and would like to check her blood sugar at home for a couple days. AM Jun 12 2020: Will test fasting and 1h postprandial FS at home. PTL precautions reviewed. Discussed labor analgesia. Unmedicated labor planned. Reviewed office call schedule. Pt to compile preferances. G1 GBS pos, G2 GBS unknown. Discussed garlic/allicin and probiotic for GBS prevention. c.o anterior hip pain. Discussed exercises. May 15 2020: Anatomy scan today, wnl, AGA (58th%), FEMALE). Posterior placenta, ok for . Good movement. Started ASA 81mg daily. Discussed recommendation for IOL at 39-40wga if undelivered. Pt inquires about natural uterotonics such as castor oil. Desires low intervention delivery, no epidural. [place] precautions. Will meet CNM at next visit. Apr 15 2020: Bianca is here for visit. Reports worsening varicosities. Has thigh high hose she wears on her R leg. Would like Dr REED to look at this leg today to see if anything else to do. Encouraged her to wear on L leg to as prevention. Wearing the support hose is best way to prevent worsening. She declines carrier screening, quad screen, cfDNA testing. 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 Her , David works at [employer]. They have a 4 yo daughter and an 18 month old son and are pleased about the . Bianca's first was uncomplicated with some extra bleeding requiring manual extraction after del. With her second she had multiple days of prodromal labor, a water home with slight shoulder dystocia. Two midwives were present. The baby was admitted to [facility] at 4 days of age with a bili of 22, dehydration and low blood sugar. She had a 12 w SAB in Sep 2019 with D. She states Homebirth is not part of the plan for this baby. Bianca has NKA to drugs, food, latex or the environment. Her diet is balanced w two cups of tea daily and one liter of water. Enc to try to at least double her water intake. She is a non drinker, a lifetime non smoker and denies street drug use. She is active with her home and kids and takes an occ walk. Enc to walk 20 min daily. Genetics Screening form completed at last visit noting no family issues and she declines AFP and CF testing. Her meds include Naturthroid, Progesterone, baby aspirin plus a vitamin and other supplements: Vit c, Vit D 3, zinc and Ovasitol. Warning signs in pg reviewed along with wearing her seatbelt very low on her abdomen, OTC meds ok to take prn, the importance of protein in her diet, lifting restriction of 25# and reaching the office after hours with understanding voiced. She's had chickenpox, They have no cats. She is aware of litter box issues. She has a copy of What to Expect. Bianca had many questions about how COVID 19 will affect her hospital stay. Questions answered but advised that she should expect the situation to change as needed with the goal of keeping her baby safe. One major concern is not being allowed to have her kosher dietary service supervisor present. She is interested in meeting all the doctors and impregnator helper in the practice which was encouraged. Advised to call with any questions she may have. Visit took one hour and 15 minutes. Paty GERMAN. Mar 10 2020: Bianca is here for a missed menses appt. U/S done and positive UPT. LMP 12/25/2019. WESLY: 09/30/2020. Updated medications, allergies and hx. Denies drinking, smoking, and drug use. Due for pap and cultures today. Consent signed. paperwork filled out, declined AFP/CF testing, EPDS with a score of 5. This is her third , reviewed informational packet and encouraged to call with questions. Pt states she might decide to come back another time for blood work. MK Mar 10 2020: as above. No special diet at this time. Tolerates carbs only due to nausea. Has two dogs at home. No cats. No recent travel or plans for travel. G1 - uncomplicated at [facility], no epidural, G2 - uncomplicated at home attended by CPM. Pt relates however had increase bleeding last time, desires hospital . PCP checked thyroid studies already and they were normal. shm Sep 24 2019: Bianca is here for f/u of SAB. Had U/S at [facility] office. Sac in uterus was seen then. She has had heavy bleeding last week pm and Monday and light spotting continues. She is very tearful today in office. Wants to know how much longer she will be bleeding. Would like definative answers today. LMT Sep 24 2019: Sep 24 2019: as above. Reports heavy bleeding started on 09/14/19 following her US at PCP's office showing an anembryonic gestation. She had severe cramping and hyeav bleeding for several hours, then it lightened however she has had persistent bleeding since then with fatigue. Denies cramping or abdominal pain, nausea, vomiting, fever or chills. [facility] REVIEW OF SYSTEMS: GENERAL - Denies fever, or chills SKIN - Denies rash, new skin lesions, or change in moles EYES - Denies blurred vision, or change in visual acuity EARS - Denies ear pain, or difficulty hearing NOSE - Denies nasal congestion, discharge, or bleeding MOUTH - Denies sore throat, or difficulty swallowing NECK - Denies pain or swelling RESPIRATORY - Denies shortness of breath, cough, wheezing CARDIOVASCULAR - Denies palpitations, chest pain, orthopnea, PND, peripheral edema, syncope or claudication GASTROINTESTINAL - Denies nausea, vomiting, diarrhea, constipation, Denies abdominal pain, melena and or bright red blood GENITOURINARY - Denies dysuria, frequency of urination, urgency, or hesitancy MUSCULOSKELETAL - Denies joint or muscle pain, or back pain NEUROLOGICAL - Denies localized numbness, weakness, or tingling PSYCHIATRIC - Denies depression, anxiety, substance abuse or suicide attempts ENDOCRINE - Denies heat or cold intolerance, weight loss or gain, increasing thirst HEMATO-IMMUNOLOGIC - Denies easy bruising, bleeding, oral ulcerations or recurrent infections GENETICS SCREENING: Age 35+ years: Yes Thalassemia: No Neural Tube Defect: No Down Syndrome: No RUBEN-SACHS: No Sickle Cell Disease: No Hemophilia: No Musc. Dystrophy: No Cystic Fibrosis: No-declines screening Joshua Chorea: No Mental Retardation: No Fragile X: No Other genetic: No Other defects: No SABs/still births: Yes x1 Drugs since LMP: Yes INFECTION HISTORY: High risk AIDS: No High risk Hepatitis: No Exposed to TB: No Exposed to Herpes: No Rash/viral illness since LMP: No History of STD: No MENSTRUAL HISTORY: *Menarche (Age Onset): 12* PAST SUMMARY: PARITY: 1. Total Pregnancies............ 4 2. Full Term Pregnancies........ 2 3. Premature.................... 0 4. Abortions - Induced.......... 0 5. Abortions - Spontaneous...... 1 6. Ectopics..................... 0 7. Multiple Births.............. 0 8. Living Children.............. 2 PAST #1: Date of :.................. 01/03/16 Gestation Weeks:................ 40 Length of labor(hours):......... 7 Sex:............................ F Weight-lbs:............... 7 Weight-oz:................ 10 Type of Delivery:............... Vag Type of Anesthesia:............. Local Place of Delivery:.............. [place] Treatment of Labor?:.... No Comment: PAST #2: Date of :.................. 09/11/18 Gestation Weeks:................ 41 Length of labor(hours):......... 3 Sex:............................ M Weight-lbs:............... 9 Weight-oz:................ 0 Type of Delivery:............... Vag Type of Anesthesia:............. None Place of Delivery:.............. HOME Treatment of Labor?:.... No Comment: PHYSICAL EXAMINATION General Appearence: 40 yo female in no acute distress Vital Signs: AF, VSS Heart: RRR without rubs or gallops Lungs: CTA x 2 Breasts: deferred Abdomen: gravid Pelvis: Cervix: Presentation: cephalic Station: Fetus: Size: AGA Movement: present Heart: present LAB TEST(S) ORDERED SINCE:01/04/20 07/08/2020 VITAMIN D,25 HYDROXY 07/08/2020 THYROID STIM HORMONE (TSH) 07/08/2020 T4 FREE DIRECT 07/08/2020 FREE T3 07/08/2020 CBC-COMPLETE BLOOD CNT NO DIFF 03/19/2020 RPR 03/16/2020 VITAMIN D,25 HYDROXY 03/16/2020 RUBELLA IGG 03/16/2020 HIV - [facility] 03/16/2020 HEPATITIS C ANTIBODY 03/16/2020 HEPATITIS B SURFACE ANTIGEN 03/13/2020 URINE DRUG SCREEN (VISTA) 03/13/2020 URINALYSIS, ROUTINE (DIPSTICK) 03/13/2020 THYROID STIM HORMONE (TSH) 03/13/2020 T AND S-NO CHARGE W/PNP 03/13/2020 MISCELLANEOUS LAB PROCEDURE 03/13/2020 HEMOGLOBIN A1C 03/13/2020 CBC W/DIFF, AUTOMATED 09/14/2020 (ROM) RUPTURE OF MEMBRANES 09/05/2020 RULE OUT BETA STREP (GRP. B) T4 FREE DIRECT NOTE BADILLO T4 FREE DIRECT T4 FREE DIRECT 0.91 ng/dL 0.76-1.46 ML THYROID STIM HO NOTE BADILLO THYROID STIM HO TSH 0.88 uIU/mL 0.358-3.74 ML FREE T3 NOTE BADILLO FREE T3 FREE T3 3.2 pg/mL 2.18-3.98 ML VITAMIN D,25 HY NOTE BADILLO VITAMIN D,25 HY VITAMIN D 25-OH 39.0 ng/mL ML Vitamin D 25(OH) Status Range Deficiency <20 ng/mL (50nmol/L) Insufficiency 20 - 30 ng/mL (50 - 75 nmol/L) Sufficiency 30 - 100 ng/mL (75 - 250 nmol/L) Toxicity >100 ng/mL (>250 nmol/L) CBC-COMPLETE BL NOTE BADILLO CBC-COMPLETE BL WBC 9.1 K/mm3 4.4-11.0 ML CBC-COMPLETE BL RBC 4.14 M/mm3 4.2-5.4 L ML CBC-COMPLETE BL HGB 12.3 g/dL 12.0-15.0 ML CBC-COMPLETE BL HCT 38.4 % 37-47 ML CBC-COMPLETE BL MCV 92.8 fL 81-99 ML CBC-COMPLETE BL MCH 29.7 pg 27.0-32.0 ML CBC-COMPLETE BL MCHC 32.0 g/dL 32-36 ML CBC-COMPLETE BL RDW CV 12.7 % 11.6-14.6 ML CBC-COMPLETE BL RDW SD 43.5 fl 35.1-43.9 ML CBC-COMPLETE BL PLT 233 K/mm3 150-450 ML CBC-COMPLETE BL MPV 10.6 fl 6.2-12.0 ML RPR NOTE BADILLO RPR RPR NONREACTIVE NONREACTIVE ML HEPATITIS C ANT NOTE BADILLO HEPATITIS C ANT HEPATITIS C AB Non-Reactive Nonreactive ML Non Reactive: < 0.8 Equivocal: >/= 0.8 to < 1.0 Reactive: >/= 1.0 The CDC recommends that a reactive/equivocal HCV antibody result be followed up by the HCV Nucleic Acid Amplification test (662015) HEPATITIS B HEIDY NOTE BADILLO HEPATITIS B HEIDY HEPB SURFACE AG Non-Reactive Nonreactive ML HIV - [facility] NOTE [facility]ADILLO HIV - [facility] HIV - [facility] Non-Reactive Nonreactive ML RUBELLA IGG NOTE BADILLO RUBELLA IGG RUBELLA IGG 93.8 IU/mL ML Antibody results Interpretation of Immune Status < 5 IU/ml Presumed Non-immune 5 - < 10 IU/ml Equivocal > or = 10 IU/ml Presumed Immune VITAMIN D,25 HY NOTE BADILLO VITAMIN D,25 HY VITAMIN D 25-OH 22.4 ng/mL ML Vitamin D 25(OH) Status Range Deficiency <20 ng/mL (50nmol/L) Insufficiency 20 - 30 ng/mL (50 - 75 nmol/L) Sufficiency 30 - 100 ng/mL (75 - 250 nmol/L) Toxicity >100 ng/mL (>250 nmol/L) URINE DRUG SCRE NOTE BADILLO URINE DRUG SCRE TO BE CONFIRMED ML URINE TCA TESTING MUST BE ORDERED SEPARATELY. USE TEST MNEMONIC: [facility] URINE DRUG SCRE VISTA UDS PH 6 ML URINE DRUG SCRE AMPHETAMINES NEGATIVE <1000 ng/mL ML URINE DRUG SCRE BARBITIURATES NEGATIVE < 200 ng/mL ML URINE DRUG SCRE BENZODIAZIPINE NEGATIVE < 200 ng/mL ML URINE DRUG SCRE COCAINE NEGATIVE < 300 ng/mL ML URINE DRUG SCRE ECSTACY NEGATIVE < 500 ng/mL ML URINE DRUG SCRE METHADONE NEGATIVE < 300 ng/mL ML URINE DRUG SCRE OPIATES NEGATIVE < 300 ng/mL ML URINE DRUG SCRE PCP NEGATIVE < 25 ng/mL ML URINE DRUG SCRE THC NEGATIVE < 50 ng/mL ML URINALYSIS, ROU NOTE [place]O URINALYSIS, ROU COLOR Yellow Yellow ML URINALYSIS, ROU CLARITY Clear Clear ML URINALYSIS, ROU GLUCOSE, UR Normal mg/dl Normal ML URINALYSIS, ROU BILIRUBIN URINE Negative mg/dL Negative ML URINALYSIS, ROU KETONE UR Negative mg/dl Negative ML URINALYSIS, ROU SP.GR. DIPSTX 1.010 1.002-1.030 ML URINALYSIS, ROU PH UR 7.0 5.0 - 8.0 ML URINALYSIS, ROU PROT DIPSTX Negative mg/dl Negative ML URINALYSIS, ROU UROBILI Normal mg/dl Normal ML URINALYSIS, ROU NITRITE UR Negative Negative ML URINALYSIS, ROU OCCULT BLOOD-UR Negative /ul Negative ML URINALYSIS, ROU LEUK ESTERASE Negative /ul Negative ML Reason for Type AND Screen/Red Cells: Surgery? [facility]~[address] [place], [address]~ T AND BLOOD TYPE GEL AB POSITIVE N ML T AND AB SCREEN GEL NEGATIVE N ML THYROID STIM HO NOTE B[place] THYROID STIM HO TSH 0.54 uIU/mL 0.358-3.74 ML HEMOGLOBIN A1C NOTE [place] HEMOGLOBIN A1C HGB A1C 4.8 % 3.8-5.6 ML Normal < 5.7 % Prediabetic 5.7 - 6.4 % Diabetic >or= 6.5 % Please note range changes. CBC W/DIFF, AUT NOTE BADILLO CBC W/DIFF, AUT WBC 10.9 K/mm3 4.4-11.0 ML CBC W/DIFF, AUT RBC 3.85 M/mm3 4.2-5.4 L ML CBC W/DIFF, AUT HGB 11.6 g/dL 12.0-15.0 L ML CBC W/DIFF, AUT HCT 34.5 % 37-47 L ML CBC W/DIFF, AUT MCV 89.6 fL 81-99 ML CBC W/DIFF, AUT MCH 30.1 pg 27.0-32.0 ML CBC W/DIFF, AUT MCHC 33.6 g/dL 32-36 ML CBC W/DIFF, AUT RDW CV 13.3 % 11.6-14.6 ML CBC W/DIFF, AUT RDW SD 43.6 fl 35.1-43.9 ML CBC W/DIFF, AUT PLT 219 K/mm3 150-450 ML CBC W/DIFF, AUT MPV 10.3 fl 6.2-12.0 ML CBC W/DIFF, AUT NEUT% 71.5 % 47-70 H ML CBC W/DIFF, AUT LY% 20.9 % 19-41 ML CBC W/DIFF, AUT MONO% 6.1 % 0-10 ML CBC W/DIFF, AUT EO% 1.0 % 0-5 ML CBC W/DIFF, AUT BASO% 0.2 % 0-1 ML CBC W/DIFF, AUT IM GRAN % 0.300 % 0.0-0.9 ML IG% - Immature Granulocytes (promyelocytes, myelocytes and metamyelocytes) > 1% indicates that a LEFT SHIFT is Present. CBC W/DIFF, AUT ABSOLUTE NEUT 7.8 X10 3/uL 2.0-7.7 H ML CBC W/DIFF, AUT ABSOLUTE LYMPH 2.28 X10 3/uL 0.83-4.51 ML CBC W/DIFF, AUT NRBC, FLAGGED 0 % 0-5 ML MISCELLANEOUS L NOTE [place] MISCELLANEOUS L MISC LAB TEST ML PapIG,CtNg,HPV, rfx 16/18 Interpretation: NEGATIVE FOR INTRAEPITHELIAL LESION AND MALIGNANCY HPV RESULTS HPV, high-risk : Negative OTHER RESULTS Chlamydia, Nuc. Acid Amp: Negative Gonococcus, Nuc. Acid Amp: Negative MYESHA Group B Beta Streptococcus is not isolated. == ==== Impression /Plan: 39 wks + 0 days intrauterine with breech presentation. Plan primary section. Preparations in progress for delivery.
[2020-09-23] MEDS: Lactated Ringers 1,000 ML 999 ML IV (10:35)
[2020-09-23] MEDS: Acetaminophen 500 MG Tablet 1000 MG PO ×3 (10:52→23:20)
[2020-09-23 10:58] LABS: Absolute Lymphocyte Count 1.64 X10^3/uL (0.83-4.51); Absolute Neutrophil Count 5.5 X10^3/uL (2.0-7.7); Basophil# 0.01 X10^3/uL; Basophil% 0.1 % (0-1); Eosinophil# 0.08 X10^3/uL; Hematocrit 34.8 % (37-47); Hemoglobin 11.6 g/dL (12.0-15.0); Lymphocyte # 1.64 X10^3/ul (4.0); Lymphocyte % 20.9 % (19-41); Mean Corp Hgb Conc 33.3 g/dL (32-36); Mean Corpuscular Hgb 29.9 pg (27.0-32.0); Mean Corpuscular Volume 89.7 fL (81-99); Mean Platelet Vol. 11.2 fl (6.2-12.0); Monocyte# 0.62 X10^3/uL; Monocyte% 7.9 % (0-10); NRBC Flagged by Analyzer 0 % (0-5); Neutrophil # 5.46 X10^3/uL (2.7-7.7); Neutrophil % 69.6 % (47-70); Platelet Count 197 K/mm3 (150-450); RBC Distribution Width CV 13.1 % (11.6-14.6); RBC Distribution Width SD 42.5 fl (35.1-43.9); Red Blood Count 3.88 M/mm3 (4.2-5.4); White Blood Count 7.9 K/mm3 (4.4-11.0)
[2020-09-23 11:06] LABS: Bedside Glucose 123 mg/dL (70-110)
[2020-09-23] MEDS: Lactated Ringers 1,000 ML 150 ML IV (11:32)
[2020-09-23] MEDS: Sodium Citrate/Citric Acid 30 ML UDC PO (11:45)
--- NOTE | 2020-09-23 12:05 | PCM.OPRPT ---
Delivery Classification: Scheduled Final WESLY: 09/30/20 Final WESLY Source: US <20 weeks Gestational age: 39 Weeks and 1 Days Type of Anesthesia:: Spinal - with Duramorph Implants Used: None Date of Procedure: 09/23/20 Pre-Operative Diagnosis: Breech Presentation Post-Operative Diagnosis: Breech Presentation, Unstable Lie Indications for : Breech Description of Procedure: Surgeon: Jayce Escobedo MD, FACOG Anesthesia: Chloe Dunn CRNA Procedure: Primary Low Transverse Cervical Caesarean Section Findings: Viable female infant with Apgars of 9/9 in cephalic presentation with clear amniotic fluid and normal three-vessel placenta. Indication: This is a 40-year-old who presents for her first at 39 weeks gestation for breech presentation. Breech presentation was confirmed with ultrasound about 10 minutes before her . The patient also declined version attempt at that time. care has otherwise been uneventful. The patient has been counseled regarding the risk and indications of this procedure including the possibility of bleeding infection and injury to surrounding structures such as bowel bladder. All questions were answered. Procedure: Patient was taken to the operating room where after spinal anesthesia was placed, the patient was prepped and draped in usual sterile fashion and a Vyas catheter was placed. The abdomen was entered through a Pfannenstiel incision and peritoneum was entered bluntly. After developing a bladder flap on the lower uterine segment a low transverse incision was made on the uterus and head was easily delivered onto the operative field the nose mouth and oropharynx were bulb suctioned. Subsequently a viable female was born with Apgars of 9/9. The infant was noted to cry move all extremities vigorously on the operative field. The umbilical cord was doubly clamped and ligated and infant handed to the nursery personnel who were present for the delivery. Placenta was delivered and noted to be 3 vessels and normal. Uterus was exteriorized and remaining placental tissue was removed. The uterus was then closed in 2 layers first with running locked 0 Vicryl suture followed by a second imbricating layer with 0 Vicryl suture. 0 Vicryl suture was then used in a horizontal mattress interrupted fashion to affect final hemostasis of the uterine incision line. Normal fallopian tubes and ovaries were visualized and the uterus was returned to the pelvis. Hemostasis was noted and rectus abdominis muscles were reapproximated in the midline with interrupted Number 0 Vicryl suture in a horizontal mattress fashion. Fascia was closed with running Number 1 PDS Strata fix suture. Subcutaneous tissue was irrigated with copious amouts of saline solution and then closed with running 3-0 Vicryl suture. Skin was closed with 4-0 monocryl suture in a running subcuticular fashion. Steri strips and a Mepilex dressing were placed across the incision. The patient tolerated the procedure well and was taken to the recovery room in satisfactory condition. Sponge, needle, and instrument counts were all reportedly correct. EBL was 500 cc. Ancef 2 gms IV was given prior to the procedure. Spicemen to Pathology: None Complications: None Amniotic Fluid Description: Clear Placenta Disposition: [facility] Specimen(s) sent to pathology: None Drain: Vyas to straight drain Fluids Replaced: Crystalloid Cord Entanglement: None Cord Vessel Description: 3 Vessels Esitmated Blood Loss (ml): 500 cc Gender: Female (1 minute): 9 (5 minute): 9 Antibiotic Given: Ancef 2 grams IV x1 Pt instructed on risks of surgery: Bleeding, Infection, Injury to surrounding structure(s) including bowel and bladder Complications: None - Admit VTE Documentation VTE Present on Admission: Yes VTE Mechan Device Prophylaxis: SCD's
[2020-09-23] MEDS: Cefazolin 2 GM in 0.9% Normal Saline 100 ML IV (12:06)
--- NOTE | 2020-09-23 12:10 | DCINST_ITS ---
<Jayce Escobedo - Last Filed: 09/23/20 12:10> Discharge Diet: No Restrictions Discharge Activity: May not drive while taking narcotic pain medications., May Shower, May Take a Tub Bath May resume sexual activity in: 4-6 weeks Lifting Restrictions: 20 pounds Additional Activity Instructions:: Nothing in the vagina for 4-6 weeks. You may return to work/school in 6 weeks. Call your doctor if your incision/area has: Continuous Slow Oozing, Sudden Increased Bleeding, Increased Pain/ Swelling, Increased Redness, Foul Smelling Discharge Call your doctor if you observe: Fever of 101 or Higher, Inability to urinate, Inability to have a bowel movement, Using more than one pad per hour Additional Instructions: If you experience any of the following, contact your healthcare provider. * Bleeding that soaks a pad every hour for 2 hours * Fever 100.4 or higher * Unrelieved incision or abdominal pain * Swelling, redness, discharge or bleeding from your incision or episiotomy site * Your incision begins to separate * Problems urinating (including inability to urinate or burning while urinating). * Visual changes * Severe headache * Flu-like symptoms * Pain or redness in one of both of your breasts * Pain, warmth, tenderness or swelling in your legs, especially the calf area * Frequent nausea and vomiting * Symptoms of depression or anxiety If you experience any of the following, call 911 or go to the nearest Emergency Room. * Chest pain * Problems breathing * Seizure activity * Partial or complete paralysis of a body part, slurred speech, weakness or drooping of the face, or a sudden inability to walk or hold your balance Allergies/Adverse Reactions: Allergies No Known Allergies Allergy (Verified 09/23/20 10:54) Medications to take at Discharge Vits [Prenatabs FA] 1 tab PO DAILY 01/02/16 Ferrous Sulfate [Iron] 325 mg PO PRN PRN 09/25/19 ascorbate calcium (vitamin C) 500 mg tablet 500 mg PO DAILY 05/25/20 cholecalciferol (vitamin D3) 125 mcg (5,000 unit) capsule 125 mcg PO DAILY 05/25/20 thyroid (pork) 30 mg tablet 30 mg PO DAILY 05/25/20 zinc 50 mg tablet 50 mg PO DAILY 05/25/20 Docusate Sodium [Colace] 100 mg PO BID PRN PRN #60 cap 09/23/20 Oxycodone [Oxyir] 5 mg PO Q6H PRN PRN 7 Days #14 tab 09/23/20 The following prescriptions were given: Docusate Sodium [Colace] 100 mg PO BID PRN PRN #60 cap PRN Reason: Constipation Transmission Status: Received by [id number] Oxycodone [Oxyir] 5 mg PO Q6H PRN PRN 7 Days #14 tab PRN Reason: Pain Score 6-10 Transmission Status: Received by [id number] Follow-Up: Call to make an appointment with your doctor for an incision check in 1-2 weeks. You will also need a 6 week post- follow up appointment. Test results from this visit will be discussed in further detail at your follow- up appointment, if applicable. Please Follow Up With: Jayce Escobedo MD - [phone] When: Call to make an appointment for an incision check in 2 weeks. Primary Care Physician: Martin Marin DO [Primary Care Provider] - <Raffi Bob - Last Filed: 09/25/20 08:50> Additional Instructions: If you experience any of the following, contact your healthcare provider. * Bleeding that soaks a pad every hour for 2 hours * Fever 100.4 or higher * Unrelieved incision or abdominal pain * Swelling, redness, discharge or bleeding from your incision or episiotomy site * Your incision begins to separate * Problems urinating (including inability to urinate or burning while urinatin g). * Visual changes * Severe headache * Flu-like symptoms * Pain or redness in one of both of your breasts * Pain, warmth, tenderness or swelling in your legs, especially the calf area * Frequent nausea and vomiting * Symptoms of depression or anxiety If you experience any of the following, call 911 or go to the nearest Emergency Room. * Chest pain * Problems breathing * Seizure activity * Partial or complete paralysis of a body part, slurred speech, weakness or drooping of the face, or a sudden inability to walk or hold your balance Follow-Up: Call to make an appointment with your doctor for an incision check in 1-2 weeks. You will also need a 6 week post- follow up appointment. Test results from this visit will be discussed in further detail at your follow- up appointment, if applicable.
[2020-09-23] MEDS: Methylergonovine 0.2 MG/ML Ampul IM (12:33)
[2020-09-23] MEDS: Oxytocin 30 units/NS 500 ml 30 UNITS/500 ML IV.SOLN 167 UNITS IV (13:20)
[2020-09-23 16:11] LABS: Bedside Glucose 91 mg/dL (70-110)
[2020-09-23] MEDS: Lactated Ringers 1,000 ML 100 ML IV (16:40)
[2020-09-23] MEDS: Ketorolac 30 MG/ML Syringe IV (18:26)
[2020-09-23] MEDS: Cefazolin 1 GM/50 ML BAG IV (20:07)
[2020-09-23] MEDS: 0.9% Saline Lock 10 ML Syringe IV (22:45)
[2020-09-24] MEDS: 0.9% Saline Lock 10 ML Syringe IV ×4 (00:45→13:14)
[2020-09-24] MEDS: Ketorolac 30 MG/ML Syringe IV ×3 (00:45→13:13)
--- NOTE | 2020-09-24 00:53 | NURSING ---
saO2 monitoring and SCD's discontinued
--- NOTE | 2020-09-24 00:54 | NURSING ---
Late entry: at 2330 [place] catheter removed intact.
[2020-09-24 03:30] VITALS: BP 107/65; PULSE 91; RESP 16; TEMP 36.6; O2SAT 100
[2020-09-24] MEDS: Cefazolin 1 GM/50 ML BAG IV (04:19)
[2020-09-24] MEDS: Acetaminophen 500 MG Tablet 1000 MG PO ×3 (05:18→17:58)
[2020-09-24 05:51] LABS: Bedside Glucose 107 mg/dL (70-110)
[2020-09-24] MEDS: Thyroid 15 MG Tablet 30 MG PO (06:29)
[2020-09-24 06:52] LABS: Hematocrit 33.5 % (37-47); Hemoglobin 10.7 g/dL (12.0-15.0); Mean Corp Hgb Conc 31.9 g/dL (32-36); Mean Corpuscular Hgb 29.6 pg (27.0-32.0); Mean Corpuscular Volume 92.8 fL (81-99); Mean Platelet Vol. 11.6 fl (6.2-12.0); Platelet Count 182 K/mm3 (150-450); RBC Distribution Width SD 43.8 fl (35.1-43.9); Red Blood Count 3.61 M/mm3 (4.2-5.4); White Blood Count 13.7 K/mm3 (4.4-11.0)
[2020-09-24 08:53] VITALS: BP 103/64; PULSE 66; RESP 16; TEMP 36.6; O2SAT 97
[2020-09-24] MEDS: Senna/Docusate Sodium 1 Tablet PO (09:46)
[2020-09-24 13:30] VITALS: BP 96/57; PULSE 74; RESP 16; TEMP 36.6
[2020-09-24] MEDS: Ibuprofen 600 MG Tablet PO (18:40)
--- NOTE | 2020-09-24 18:41 | PCM.PN.OB ---
Subjective: No overnight complaints. Pain well controlled. - Physical Exam Vitals/I&O's: Vital Signs Temp Pulse Resp BP Pulse Ox 97.8 F 74 16 96/57 L 97 09/24/20 13:30 09/24/20 13:30 09/24/20 13:30 09/24/20 13:30 09/24/20 08:53 Oxygen Delivery Method Room Air Weight: 176 lb 12.972 oz Body Mass Index (BMI) 29.4 Intake and Output for Last 24 Hours 09/22/20 09/23/20 09/24/20 23:59 23:59 23:59 Intake Total 3759.05 / 3759.05 750 / 750 Output Total 2150 / 2150 700 / 700 Balance 1609.05 / 1609.05 50 / 50 General: Alert, Oriented x3, Cooperative, No apparent distress HEENT: Atraumatic, PERRLA, Normocephalic Oral: Moist Mucosa Neck: Supple Abdomen: Soft, Non Tender Extremities: No clubbing, No cyanosis Neurological: Neuro grossly intact Psych/Mental Status: Normal Affect, Appropriate, Alert and oriented to time, place, person, mood and affect Laboratory Results 09/24/20 05:23: POC Glucose 107 09/24/20 06:20: WBC 13.7 H, RBC 3.61 L, Hgb 10.7 L, Hct 33.5 L, MCV 92.8, MCH 29.6, MCHC 31.9 L, RDW Std Deviation 43.8, RDW Coeff of Gayatri 13.0, Plt Count 182, MPV 11.6 Current Medications Acetaminophen (Acetaminophen 500 Mg Tablet) 1,000 mg PO Q6H [facility] Last Admin: 09/24/20 17:58 Dose: 1,000 mg Documented by: Bisacodyl (Bisacodyl 10 Mg Suppository) 10 mg RC UD PRN PRN Reason: If no BM Hydrocortisone (Hydrocortisone 2.5% Crm) 1 applic TOPICAL TID PRN PRN; Protocol PRN Reason: Discomfort Ibuprofen (Ibuprofen 600 Mg Tablet) 600 mg PO Q6H [facility] Methylergonovine Maleate (Methylergonovine 0.2 Mg/Ml Ampul) 0.2 mg IM X1 PRN PRN Reason: Uterine Atony Last Admin: 09/23/20 12:33 Dose: 0.2 mg Documented by: Ondansetron HCl (Ondansetron 4 Mg/2 Ml Vial) 4 mg IV Q4H PRN PRN PRN Reason: Nausea Oxycodone HCl (Oxycodone 5 Mg Tablet) 5 - 10 mg PO Q4H PRN PRN PRN Reason: Pain Score 4-10 Prochlorperazine Edisylate (Prochlorperazine 10 Mg/2 Ml Vial) 10 mg IV Q6H PRN PRN PRN Reason: NAUSEA Senna/Docusate Sodium (Senna/Docusate Sodium 1 Tablet) 0 tablet PO DAILY [facility] Last Admin: 09/24/20 09:46 Dose: 1 tablet Documented by: Simethicone (Simethicone 80 Mg Tablet) 80 mg PO [facility] PRN PRN Reason: Indigestion/stomach pain Last Admin: 09/24/20 17:59 Dose: 80 mg Documented by: Sodium Chloride (0.9% Saline Lock 10 Ml Syringe) 5 - 15 ml IV UD PRN PRN Reason: SALINE FLUSH Last Admin: 09/24/20 13:14 Dose: 10 ml Documented by: Thyroid (Thyroid 15 Mg Tablet) 30 mg PO DAILY@0600 [facility] Last Admin: 09/24/20 06:29 Dose: 30 mg Documented by: Medical Necessity - Tobacco Use Smoking Status: Never smoker Assessment/Plan All Active Problems (Last Reviewed 09/16/20 @ 11:25 by Mary Billings) Incomplete spontaneous (Acute) Back pain (Acute) Segmental and somatic dysfunction of cervical region (Acute) Segmental and somatic dysfunction of thoracic region (Acute) Ventral incisional hernia without obstruction or gangrene (Acute) Segmental and somatic dysfunction of pelvic region (Acute) Segmental and somatic dysfunction of sacral region (Acute) Segmental and somatic dysfunction of lumbar region (Acute) Postoperative day 1. Pain well controlled. Likely discharge home tomorrow
[2020-09-24] MEDS: oxyCODONE 5 MG Tablet PO (20:58)
[2020-09-24 21:17] VITALS: BP 117/73; PULSE 67; RESP 16; TEMP 36.7
[2020-09-25] MEDS: Acetaminophen 500 MG Tablet 1000 MG PO ×3 (00:08→11:58)
[2020-09-25] MEDS: Ibuprofen 600 MG Tablet PO ×3 (00:08→11:58)
[2020-09-25] MEDS: oxyCODONE 5 MG Tablet PO ×2 (00:13→04:31)
[2020-09-25 03:23] VITALS: BP 109/60; PULSE 62; RESP 16; TEMP 36.6
[2020-09-25] MEDS: Thyroid 15 MG Tablet 30 MG PO (05:49)
--- NOTE | 2020-09-25 06:29 | NURSING ---
Patient states she has taken a couple doses of her own home med she takes to keep her regular. States it is some sort of calcium/magnesium supplement. Patient states she is experiencing extreme gas pain and gurgling in her stomach. This RN will investigate further.
--- NOTE | 2020-09-25 08:48 | PN.OBGYN_ITS ---
Subjective: No overnight complaints. Pain well controlled. Mild to moderate back pain and gas pain - Physical Exam Vitals/I&O's: Vital Signs Temp Pulse Resp BP Pulse Ox 97.9 F 62 16 109/60 97 09/25/20 03:23 09/25/20 03:23 09/25/20 03:23 09/25/20 03:23 09/24/20 08:53 Oxygen Delivery Method Room Air Weight: 176 lb 12.972 oz Body Mass Index (BMI) 29.4 Intake and Output for Last 24 Hours 09/23/20 09/24/20 09/25/20 23:59 23:59 23:59 Intake Total 3759.05 / 3759.05 750 / 750 Output Total 2150 / 2150 700 / 700 Balance 1609.05 / 1609.05 50 / 50 General: Alert, Oriented x3, Cooperative, No apparent distress HEENT: Atraumatic, PERRLA, Normocephalic Oral: Moist Mucosa Neck: Supple Abdomen: Soft, Non Tender, - - Bandage clean dry and intact Extremities: No clubbing, No cyanosis Neurological: Neuro grossly intact Psych/Mental Status: Normal Affect, Appropriate, Alert and oriented to time, place, person, mood and affect Current Medications Acetaminophen (Acetaminophen 500 Mg Tablet) 1,000 mg PO Q6H [facility] Last Admin: 09/25/20 05:49 Dose: 1,000 mg Documented by: Bisacodyl (Bisacodyl 10 Mg Suppository) 10 mg RC UD PRN PRN Reason: If no BM Hydrocortisone (Hydrocortisone 2.5% Crm) 1 applic TOPICAL TID PRN PRN; Protocol PRN Reason: Discomfort Ibuprofen (Ibuprofen 600 Mg Tablet) 600 mg PO Q6H [facility] Last Admin: 09/25/20 05:48 Dose: 600 mg Documented by: Methylergonovine Maleate (Methylergonovine 0.2 Mg/Ml Ampul) 0.2 mg IM X1 PRN PRN Reason: Uterine Atony Last Admin: 09/23/20 12:33 Dose: 0.2 mg Documented by: Ondansetron HCl (Ondansetron 4 Mg/2 Ml Vial) 4 mg IV Q4H PRN PRN PRN Reason: Nausea Oxycodone HCl (Oxycodone 5 Mg Tablet) 5 - 10 mg PO Q4H PRN PRN PRN Reason: Pain Score 4-10 Last Admin: 09/25/20 04:31 Dose: 5 mg Documented by: Prochlorperazine Edisylate (Prochlorperazine 10 Mg/2 Ml Vial) 10 mg IV Q6H PRN PRN PRN Reason: NAUSEA Senna/Docusate Sodium (Senna/Docusate Sodium 1 Tablet) 0 tablet PO DAILY [facility] Last Admin: 09/24/20 09:46 Dose: 1 tablet Documented by: Simethicone (Simethicone 80 Mg Tablet) 80 mg PO [facility] PRN PRN Reason: Indigestion/stomach pain Last Admin: 09/25/20 05:47 Dose: 80 mg Documented by: Sodium Chloride (0.9% Saline Lock 10 Ml Syringe) 5 - 15 ml IV UD PRN PRN Reason: SALINE FLUSH Last Admin: 09/24/20 13:14 Dose: 10 ml Documented by: Thyroid (Thyroid 15 Mg Tablet) 30 mg PO DAILY@0600 [facility] Last Admin: 09/25/20 05:49 Dose: 30 mg Documented by: Medical Necessity - Tobacco Use Smoking Status: Never smoker Assessment/Plan All Active Problems (Last Reviewed 09/16/20 @ 11:25 by Mary Billings) Incomplete spontaneous (Acute) Back pain (Acute) Segmental and somatic dysfunction of cervical region (Acute) Segmental and somatic dysfunction of thoracic region (Acute) Ventral incisional hernia without obstruction or gangrene (Acute) Segmental and somatic dysfunction of pelvic region (Acute) Segmental and somatic dysfunction of sacral region (Acute) Segmental and somatic dysfunction of lumbar region (Acute) Postop day 2. Overall pain well controlled normal back pain and gas pain after delivery. Discussed stool softeners heating pads. Breast-feeding. Okay to discharge home today
[2020-09-25 09:05] VITALS: BP 106/69; PULSE 80; RESP 16; TEMP 36.7; O2SAT 97
[2020-09-25] MEDS: Senna/Docusate Sodium 1 Tablet PO (10:20)
[2020-09-25 13:28] VITALS: BP 114/69; PULSE 74; RESP 16; TEMP 36.6; O2SAT 98
== END 2020-09-25 15:10 | disposition home or self-care (01) | DRG 788 ==
PROVIDERS: Obstetrics & Gynecology; Admitting Provider Obstetrics & Gynecology; PCP Student in an Organized Health Care Education/Training Program; Visit Provider Obstetrics & Gynecology
PROC: (CPT 59514; principal; 2020-09-23 11:45)
DX: O32.1XX0 Maternal care for breech presentation, not applicable or unspecified (principal); O32.0XX0 Maternal care for unstable lie, not applicable or unspecified; O99.284 Endocrine, nutritional and metabolic diseases complicating childbirth; O99.02 Anemia complicating childbirth; D64.9 Anemia, unspecified; E03.9 Hypothyroidism, unspecified; Z3A.39 39 weeks gestation of pregnancy; Z37.0 Single live birth
CPT/HCPCS: 36415; 82962; 85025; 85027; 86850; 86900; 86901; 99218; 99251; J7120; A4216; G0378; G0463; J2405